=== PATIENT | male | born 1955 | race Caucasian/White ===

== ENCOUNTER 2017-09-05 11:05 | Inpatient (IN) | payer OTHER ==
[~2017-09-05] VITALS: Ht 185.4 cm; Wt 111.2 kg
[2017-09-05 13:27] LABS: ABSOLUTE BASOPHIL COUNT 0.1 /CUMM (0.0-0.2); ABSOLUTE EOSINOPHIL COUNT 0.1 /CUMM (0.0-0.7); ABSOLUTE MONOCYTE COUNT 0.4 /CUMM (0.10-0.60); BASOPHIL % 0.5 % (0.0-2.0); EOSINOPHIL % 1.1 % (0-5); GRANULOCYTE % 85.9 % (42.2-75.2); HEMATOCRIT 45.2 % (42-52); MEAN CORPUSCULAR HGB 27.6 PG (27.0-31.0); MEAN CORPUSCULAR VOLUME 86.1 FL (80.0-94.0); MEAN PLATELET VOLUME 12.5 FL (7.4-10.4); RBC DISTRIBUTION WIDTH 15.8 % (11.5-14.5); RED BLOOD CELL CT 5.25 /CUMM (4.70-6.10); WHITE BLOOD CELL COUNT 11.6 /CUMM (4.8-10.8)
[2017-09-05 13:49] LABS: PLATELET COUNT 90 /CUMM (130-400)
--- NOTE | 2017-09-05 14:07 | ED GENERAL ADULT ---
History of Present Illness General Chief Complaint: General Adult Stated Complaint: WEAKNESS Source: patient, family Exam Limitations: no limitations Vital Signs & Intake/Output Vital Signs & Intake/Output Vital Signs Date Time Temp Pulse Resp B/P B/P Pulse O2 O2 Flow FiO2 Mean Ox Delivery Rate 09/05 1837 97.8 84 18 148/92 100 Room Air 09/05 1553 98.6 88 18 122/85 99 Room Air 09/05 1403 97.9 88 18 117/76 96 Room Air 09/05 1304 98.2 86 18 95 Room Air 09/05 1118 98.6 97 20 119/87 96 Room Air Allergies Coded Allergies: NO KNOWN ALLERGIES (NO) (08/17/10) Reconcile Medications Amlodipine Besylate 2.5 MG TABLET 2.5 MG PO DAILY HTN (Reported) Aspirin (Ecotrin*) 81 MG TABLET.DR 1 TAB PO DAILY CARDIAC (Reported) Calcitriol 0.25 MCG CAPSULE 1 TAB PO SI SUPPLEMENT (Reported) Ferrous Sulfate 325 MG (65 MG IRON) TABLET 1 TAB PO DAILY SUPPLEMENT ( Reported) Folic Acid 1 MG TABLET 1 MG PO DAILY SUPPLEMENT (Reported) Furosemide (Lasix) 40 MG TABLET 1 TAB PO DAILY FLUID RETENTION (Reported) Levetiracetam (Keppra) 500 MG TABLET 500 MG PO DAILY SEIZURE (Reported) Lisinopril 10 MG TABLET 1 TAB PO DAILY HTN (Reported) Triage Note: PT C/O FEELING WEAK, LOSS OF APPETITE, WEIGHT LOSS X 2 WEEKS. PT STATES SOB WHEN HE WALKS BUT THAT IS NORMAL FOR HIM. NEUROS INTACT IN TRIAGE Triage Nurses Notes Reviewed? 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 The patient has never had anorexia in the past and is not sure what the etiology of his current lack of appetite is. He has been taking in plenty of fluids subjectively, but has no desire to eat food. He has been force feeding himself as much as possible, but has become progressively weak and has lost significant amounts of weight. They attempted to get an appointment with his tremor care physician but were unsuccessful, and then they attempted to call his chief physical therapist for an appointment but he was in the civil laboratory technician and they were instructed to come to the ED for a more acute and emergent evaluation. Upon my initial encounter the patient is fatigued but otherwise nontoxic and no acute distress. Past History Travel History Traveled to [place] past 21 day No Medical History Any Pertinent Medical History? see below for history Neurological: CVA Cardiovascular: hypertension Pneumonia Vaccine: 10/20/10 Surgical History Surgical History: bovine heart valve replacement Psychosocial History Who do you live with Spouse Services at Home None What is your primary language Vietnamese Tobacco Use: Quit >30 days ago ETOH Use: occasional use Illicit Drug Use: denies illicit drug use Family History Hx Contributory? Yes Review of Systems Review of Systems Constitutional: Reports: see HPI, malaise, weakness, unexplained weight loss. Denies: chills, diaphoresis, fever. EENTM: Reports: no symptoms. Respiratory: Reports: no symptoms. Cardiovascular: Reports: no symptoms. GI: Reports: no symptoms. Genitourinary: Reports: no symptoms. Musculoskeletal: Reports: no symptoms. Skin: Reports: no symptoms. Neurological/Psychological: Reports: no symptoms. Hematologic/Endocrine: Reports: no symptoms. Immunologic/Allergic: Reports: no symptoms. All Other Systems: Reviewed and Negative Physical Exam Physical Exam General Appearance: no apparent distress, alert, awake, comfortable, lethargic Comments: HEENT: Inspection of the head reveals a normocephalic cranium with no signs of trauma. Ophtho: Extraocular muscles are intact and pupils are equal and reactive to light bilaterally with no afferent pupillary defect. The sclera are noninjected , and there is no obvious discharge. Neck: The trachea is midline, there is no obvious asymmetry or mass over the thyroid, and there is no midline cervical spine tenderness Respiratory: The lungs are clear and equal to auscultation bilaterally without wheezes, rales, or rhonchi. The patient exhibits no signs of labored breathing. Cardiac: Regular rhythm and non-tachycardic without appreciable murmurs on auscultation. No obvious JVD. GI: Examination of the abdomen reveals no significant focal tenderness in any of the four quadrants. There is negative Beauchamp's sign, negative McBurney's point tenderness, negative Metaline sign, negative Love-Wheat sign, and no signs of peritonitis whatsoever on percussion or deep palpation. The skin is intact with no sign of trauma or infection. : Deferred Neuro: The patient is oriented to person, place, time, and situation, with no obvious focal motor deficits. There were no sensory deficits, and the patient exhibit purposeful movement of all 4 extremities. Cranial nerves II through XII are intact, and gait is normal. Behavioral: Subjectively fatigued, but otherwise calm and cooperative Dermatologic: Dermatologic examination reveals no diffuse rashes or exanthems, no petechiae, no ecchymoses, and no other signs of erythema or infection. Core Measures ACS in differential dx? Yes CVA/TIA Diagnosis: No Sepsis Present: No Sepsis Focused Exam Completed? No Progress Differential Diagnoses I considered the following diagnoses in my evaluation of the patient: Renal failure, electrolyte abnormality, urinary tract infection, pneumonia, sepsis, acute coronary syndrome, [place], multiple other possibilities Plan of Care: Orders Procedure Date/time Status Heart Healthy Diet 09/06 B Active Pathway - chart 09/05 1921 Active House Staff 09/05 1921 Active Patient Data 09/05 192 Active Code Status 09/05 192 Active Patient Data 09/05 1719 Active ED Holding Orders 09/05 171 Active Admit to inpatient 09/05 171 Active FingerStick- Glucose 09/05 171 Active Code Status 09/05 1713 Complete Intake & Output 09/05 1427 Active TROPONIN LEVEL 09/05 1205 Complete COMPREHENSIVE METABOLIC PANEL 09/05 1205 Complete CBC WITHOUT DIFFERENTIAL 09/05 1205 Complete EKG 09/05 1120 Active VTE Mechanical Prophylaxis 09/05 UNK Active Current Medications Sig/Nelson Start time Last Medication Dose Stop Time Status Admin Enoxaparin Sodium 40 MG DAILY 09/05 1921 UNVr (Lovenox) Laboratory Tests 09/05/17 1302: Anion Gap 14, Estimated GFR 44 L, BUN/Creatinine Ratio 16.9, Glucose 609 *H, Calcium 9.7, Total Bilirubin 0.9, AST 9 L, ALT 20 L, Alkaline Phosphatase 74, Troponin I < 0.01, Total Protein 6.4, Albumin 3.7, Globulin 2.7, Albumin/ Globulin Ratio 1.4, CBC w Diff NO MAN DIFF REQ, RBC 5.25, MCV 86.1, MCH 27.6, MCHC 32.0 L, RDW 15.8 H, MPV 12.5 H, Gran % 85.9 H, Lymphocytes % 8.9 L, Monocytes % 3.6, Eosinophils % 1.1, Basophils % 0.5, Absolute Granulocytes 10.0 H, Absolute Lymphocytes 1.0 L, Absolute Monocytes 0.4, Absolute Eosinophils 0.1 , Absolute Basophils 0.1 Initial ED EKG: none Comments: Patient presented with fatigue, malaise, polyuria, polydipsia, and loss of appetite. Laboratory studies were largely normal except for a significant abnormal glucose of 609. This represents a likely diagnosis of new onset diabetes. I discussed the case with endocrinology (Benito Rodriguez MD) who recommended hospitalization for urgent workup given his comorbidities. Hospitalized in hemodynamically stable condition. Departure Departure Time of Disposition: 1647 Disposition: STILL A PATIENT Condition: Fair Clinical Impression Primary Impression: Diabetes Qualifiers: Diabetes mellitus type: type 2 Diabetes mellitus skilled nursing insulin use: without watermaster use Diabetes mellitus complication status: with hyperglycemia Qualified Code: E11.65 - Type 2 diabetes mellitus with hyperglycemia Referrals: Maximo Egan MD (PCP/Family) Departure Forms: Customer Survey General Discharge Information Admission Note Spoke With: Enriqueta Arzate MD Documentation of Exam: Documentation of any treatments & extenuating circumstances including Concerns Regarding Discharge (functional status, medication knowledge or non-compliance, living conditions, etc.) that warrant an admission rather than observation: Patient presented today for fatigue, polyuria, polydipsia. Laboratory studies diagnosed him with likely new onset diabetes type 2. After discussion with endocrinology, it does not seem that discharge home with outpatient follow-up would be appropriate given his comorbidities and the risk for decompensation. For this reason, the patient will be admitted for further workup. Critical Care Note Critical Care Note Critical Care Time: non-applicable ED Attending Observation Initial Observation Note: I have seen and personally examined SUZI GARCIAN on 09/05/17 at 1929. I agree with the current emergency department documentation. The disposition (admission or discharge) is uncertain at this time, he needs a period of observation for the following reason(s): The ED Nurse caring for this patient has been personally informed as to what the patient is being observed for.
[2017-09-05] MEDS ORDERED: AMLODIPINE BES2.5 M1 PO (14:45)
[2017-09-05] MEDS ORDERED: KEPPRA500 M1 PO (14:45)
[2017-09-05] MEDS ORDERED: FERROUS SULFAT325 M3 PO (14:46)
[2017-09-05] MEDS ORDERED: LASIX40 M1 PO (14:46)
[2017-09-05] MEDS ORDERED: FOLIC ACID1 M1 PO (14:46)
[2017-09-05] MEDS ORDERED: ASPIRIN EC81 M1 PO (14:47)
[2017-09-05] MEDS ORDERED: LISINOPRIL10 M1 PO (14:47)
[2017-09-05] MEDS ORDERED: CALCITRIOL0.25 MC1 PO (14:52)
--- NOTE | 2017-09-05 14:58 | RADIOLOGY REPORT ---
EXAMINATION: XR CHEST CLINICAL INFORMATION: Weakness. COMPARISON: Chest portable 06/14/2011. TECHNIQUE: 2 views of the chest were obtained. FINDINGS: There is moderate elevation of left hemidiaphragm unchanged to 06/14/2011 exam. The heart size is enlarged with normal pulmonary vascularity. The lungs are well-expanded and clear. There is minimal bilateral apical scarring. No gross bony abnormality seen. IMPRESSION: No acute cardiopulmonary process. Moderate elevated left hemidiaphragm is stable compared to 06/14/2011.
--- NOTE | 2017-09-05 17:21 | History & Physical ---
[facility] WEAVER,[facility] 1721: General Information and HPI MD Statement: I have seen and personally examined CHUCKIE GARCIA and documented this H&P. The patient is a 61 year old M who presented with a patient stated chief complaint of [new-onset diabetes]. Source of Information: patient, old records Exam Limitations: no limitations History of Present Illness: Patient is a 61-year-old male with past medical history of subarachnoid hemorrhage status post clipping in 2010, history of endocarditis status post aortic valve replacement 2010, peripheral vascular disease, hypertension, BPH, history of seizure presented with chief complaints of weight loss, weakness and loss of appetite since last 3 weeks. According to the patient he was relatively all right 3 weeks ago and then he felt that he is a little bit dizzy and he lost his appetite. He was saying that he started losing weight and he described it as a losing the codes. He is drinking a lot around 3 L per day and also having increased frequency of urination. At her baseline he uses cane since 2010 because of weak left leg he did have episode of slipping but never had fall or injure himself. He also complaining for shortness of breath while going up and down the stairs. Of note since last 2 or 3 days he is having severe sore throat and difficulty in the swallowing. Allergies -He was complaining of allergies with some antibiotic but is not aware of the name Surgical history- history of subarachnoid hemorrhage and clipping of aneurysm in 2010 Aortic valve repair with bovine valve 2010 Family history - father had aneurysm and CABG, emphysema Mother had stroke and aneurysm Personal history-he lives at [place], for the , walks with a cane, he quit smoking at the age of 44 and smoked since age of [age] around 1 pack per day. He drinks alcohol occasionally. 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 [place], follow-up every 1 year Pet House Sitter-Dr. Atkinson, follow-up every 6 months, had an echocardiogram 1 year ago Neurologist - Dr. Gonzalez Podiatry-Dr. Karimi, [place]. Allergies/Medications Allergies: Coded Allergies: NO KNOWN ALLERGIES (NO) (08/17/10) Home Med list Amlodipine Besylate 2.5 MG TABLET 2.5 MG PO DAILY HTN (Reported) Aspirin (Ecotrin*) 81 MG TABLET.DR 1 TAB PO DAILY CARDIAC (Reported) Calcitriol 0.25 MCG CAPSULE 1 TAB PO SI SUPPLEMENT (Reported) Ferrous Sulfate 325 MG (65 MG IRON) TABLET 1 TAB PO DAILY SUPPLEMENT ( Reported) Folic Acid 1 MG TABLET 1 MG PO DAILY SUPPLEMENT (Reported) Furosemide (Lasix) 40 MG TABLET 1 TAB PO DAILY FLUID RETENTION (Reported) Levetiracetam (Keppra) 500 MG TABLET 500 MG PO DAILY SEIZURE (Reported) Lisinopril 10 MG TABLET 1 TAB PO DAILY HTN (Reported) Past History Travel History Traveled to [place] past 21 day No Medical History Neurological: CVA Cardiovascular: hypertension Pneumonia Vaccine: 10/20/10 Surgical History Surgical History: bovine heart valve replacement Past Family/Social History Psychosocial History Services at Home: None ETOH Use: occasional use Illicit Drug Use: denies illicit drug use Review of Systems Review of Systems Constitutional: Reports: no symptoms, malaise, weakness, unexplained weight loss. Exam & Diagnostic Data Last 24 Hrs of Vital Signs/I&O Vital Signs Date Time Temp Pulse Resp B/P B/P Pulse O2 O2 Flow FiO2 Mean Ox Delivery Rate 09/05 1837 97.8 84 18 148/92 100 Room Air 09/05 1553 98.6 88 18 122/85 99 Room Air 09/05 1403 97.9 88 18 117/76 96 Room Air 09/05 1304 98.2 86 18 95 Room Air 09/05 1118 98.6 97 20 119/87 96 Room Air Intake & Output 09/05 1600 09/05 0800 09/05 0000 Intake Total Output Total Balance Patient 121.109 kg Weight Weight Reported by Patient Measurement Method Physical Exam General Appearance Alert, Oriented X3, Cooperative, No Acute Distress HEENT Atraumatic, PERRLA, EOMI, oral cavity - thrush, Neck Supple, No JVD, No thryomegaly Cardiovascular Normal S1, Normal S2 Lungs decreased air entry on bases left more than right Abdomen Soft, No Tenderness, umbilical hernia Neurological Normal Speech, Strength at 5/5 X4 Ext, Normal Tone, Sensation Intact, Cranial Nerves 3-12 NL Extremities bilateral lower extremeties chronic stasis changes, decreased posterior tibial but normal dorsalis pedis., there was dry scab on front of left lower tabor Last 24 Hrs of Labs/Harrison: Laboratory Tests 09/05/17 1302: Anion Gap 14, Estimated GFR 44 L, BUN/Creatinine Ratio 16.9, Glucose 609 *H, Calcium 9.7, Total Bilirubin 0.9, AST 9 L, ALT 20 L, Alkaline Phosphatase 74, Troponin I < 0.01, Total Protein 6.4, Albumin 3.7, Globulin 2.7, Albumin/ Globulin Ratio 1.4, CBC w Diff NO MAN DIFF REQ, RBC 5.25, MCV 86.1, MCH 27.6, MCHC 32.0 L, RDW 15.8 H, MPV 12.5 H, Gran % 85.9 H, Lymphocytes % 8.9 L, Monocytes % 3.6, Eosinophils % 1.1, Basophils % 0.5, Absolute Granulocytes 10.0 H, Absolute Lymphocytes 1.0 L, Absolute Monocytes 0.4, Absolute Eosinophils 0.1 , Absolute Basophils 0.1 Assessment/Plan Assessment: Patient is a 61-year-old male with past medical history of subarachnoid hemorrhage status post clipping in 2010, 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 ED course - Vital signs at the time of admission -temperature 98.6, pulse 97, respiratory 20 , blood pressure 119/87, SPO2 96% on room air. On physical examination -oral cavity -thrush, left lower leg weakness, bilateral lower extremity chronic skin changes due to stasis Blood workup showed -WBC 11.6, hemoglobin 14.5, hematocrit 45.6, MCV 86.1, platelet count 90,000, granulocyte 85.9, no band cells, sodium 133, potassium 4.6, chloride 95, carbon dioxide 23, anion gap 14, BUN 27, creatinine 1.6, GFR 44, glucose 309, calcium 9.7, total bilirubin 0.9, AST 9, ALT 20, alkaline phosphatase 74, troponin I less than 0.01, albumin 3.7. Chest x-ray - * No acute cardiopulmonary process. * Moderate elevated left hemidiaphragm is stable compared to 06/14/2011 New-onset diabetes mellitus * Admit the patient to general medicine floor * Start patient on IV fluids-normal saline 75 cc/h * Carbohydrate type II diet * Blood sugar monitoring 4 times daily/at bedtime * NovoLog according to the sliding scale * Follow-up endocrine consult * Follow HbA1c * Will check magnesium and phosphorus Acute kidney injury - * We will regularly monitor BUN/creatinine * We will hold furosemide and lisinopril * Strict intake output charting Pseudo-hyponatremia -corrected sodium is 141 * We will control the blood sugar level and regularly monitored the serum sodium level Thrombocytopenia - New onset thrombocytopenia we do not know exactly the cause but may be infection as he was also complaining of sore throat. He denies for any active bleeding, black stool. * We will regularly monitor the serum platelet count. Oral thrush -candidal esophagitis? He was complaining of difficulty in swelling and on examination there was whitish patch on the back of the throat. * Advised for nystatin swish and swallow for now * If he continued to complaining of pain while swallowing we will plan for EGD. * We will check for HIV. Chronic medical condition-aortic valve replacement, history of seizure disorder, peripheral vascular disease - * Will continue aspirin and levetiracetam. We will hold Lasix and lisinopril. DVT prophylaxis -ALPS/heparin CODE STATUS-full code Diet-carbohydrate type II diet As Ranked By This Provider Problem List: 1. Diabetes Qualifiers Diabetes mellitus type: type 2 Diabetes mellitus director long term care insulin use: without correction use Diabetes mellitus complication status: with hyperglycemia Qualified Code: E11.65 - Type 2 diabetes mellitus with hyperglycemia 2. Syncope 3. SUB ARACHNOID HEMORRHAGE 4. SEIZURE DISORDER 5. H/O HYPERTENSION 6. Endocarditis 7. BPH 8. Aortic Valve Replacement Core Measures/Misc (12/24) Acute Coronary Syndrome ACS Diagnosis: No Congestive Heart Failure Congestive Heart Failure Diagnosis No Cerebrovascular Accident CVA/TIA Diagnosis: No VTE (View Protocol) VTE Risk Factors Age>40 No Mechanical VTE Prophylaxis d/t N/A MechProphylax Ordered No VTE Pharm Prophylaxis d/t Platelets below ref range (low platelet count) Sepsis (View protocol) Sepsis Present: No If YES complete Sepsis Event Note If YES complete Sepsis Event Note Enriqueta Arzate MD 09/06/17 1048: Core Measures/Misc (12/24) Sepsis (View protocol) If YES complete Sepsis Event Note If YES complete Sepsis Event Note Attending MD Review Statement Attending Statement Attending MD Statement: examined this patient, discuss w/resident/PA/SATURATOR TENDER, agreed w/resident/PA/SATURATOR TENDER, reviewed EMR data (avail) Attending Assessment/Plan: 61M PMH subarachnoid hemorrhage status post clipping in 2010, 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 Labs otherwise unremarkable. Patient has oral thrush without odynophagia. Plan - Admit to general medicine - Sliding scale insulin, add long acting tomorrow - IV hydration - Nystatin S/S - HbA1c - Continue home medications - DVT PPx
--- NOTE | 2017-09-05 18:46 | Cons- Endocrinology ---
General Information and HPI Consulting Request Date of Consult: 09/05/17 Requested By: medical team Reason for Consult: Uncontrolled diabetes new-onset Source of Information: patient, family, old records Exam Limitations: no limitations History of Present Illness: This 55-year-old male has a complicated past history. He has had a history of hypertension with a subarachnoid hemorrhage in the past due to a brain aneurysm. He has a seizure disorder. He also had an episode of enterococcal endocarditis and had to undergo an aortic valve replacement with a pig valve at [facility] in October 2010. The patient came to emergency room because he felt weak. He did notice increased thirst and urination. He states he has been losing weight. When his lab work was done it showed a blood sugar 609 BUN 27 creatinine 1.6 sodium 133 potassium 4.6 chloride 95 CO2 23 anion gap normal at 14. The patient has a history of chronic renal failure with a creatinine in the range it is tonight at 1.6. He states he is followed by a kidney doctor Dr. Chua. Allergies/Medications Allergies: Coded Allergies: NO KNOWN ALLERGIES (NO) (08/17/10) Home Med List: Amlodipine Besylate 2.5 MG TABLET 2.5 MG PO DAILY HTN (Reported) Aspirin (Ecotrin*) 81 MG TABLET.DR 1 TAB PO DAILY CARDIAC (Reported) Atorvastatin Calcium 40 MG TABLET 1 TAB PO DAILY HLD Calcitriol 0.25 MCG CAPSULE 1 TAB PO SI SUPPLEMENT (Reported) Ferrous Sulfate 325 MG (65 MG IRON) TABLET 1 TAB PO DAILY SUPPLEMENT ( Reported) Folic Acid 1 MG TABLET 1 MG PO DAILY SUPPLEMENT (Reported) Furosemide (Lasix) 40 MG TABLET 1 TAB PO DAILY FLUID RETENTION (Reported) Insulin Glargine,Hum.rec.anlog (Lantus Solostar) 100 UNIT/ML (3 ML) INSULN.PEN 10 UNITS SC BID DM Insulin Lispro (Humalog) 100 UNIT/ML VIAL 0 SC TIDAC DM Levetiracetam (Keppra) 500 MG TABLET 500 MG PO DAILY SEIZURE (Reported) Lisinopril 10 MG TABLET 1 TAB PO DAILY HTN (Reported) Nystatin 100,000 UNIT/ML ORAL.SUSP 5 ML PO 4 TIMES/DAY Oral thrush . Pen Needle, Diabetic (Bd Ultra-Fine Pen Needle) 31 GAUGE X 5/16" DIS.NEEDLE 1 UNIT SC 5 TIMES CHASE DM Current Medications: Current Medications Sig/Nelson Start time Last Medication Dose Route Stop Time Status Admin Insulin Human Regular 10 UNITS ONCE ONE 09/05 1645 DC 09/05 IV 09/05 1646 1650 Sodium Chloride 1,000 ML BOLUS ONE 09/05 1730 DC 09/05 IV 09/05 1829 1731 Review of Systems Review of Systems Constitutional: Denies: chills, fever. Cardiovascular: Denies: chest pain, palpitations. Respiratory: Denies: short of breath. GI: Denies: nausea, vomiting. Skin: Reports: no symptoms. Past History Travel History Traveled to [facility] past 21 day No Medical History Neurological: CVA Cardiovascular: hypertension Surgical History Surgical History: bovine heart valve replacement Psychosocial History Services at Home: None ETOH Use: occasional use Illicit Drug Use: denies illicit drug use Exam & Diagnostic Data Last 24 Hrs of Vital Signs/I&O Vital Signs Date Time Temp Pulse Resp B/P B/P Pulse O2 O2 Flow FiO2 Mean Ox Delivery Rate 09/05 1837 97.8 84 18 148/92 100 Room Air 09/05 1553 98.6 88 18 122/85 99 Room Air 09/05 1403 97.9 88 18 117/76 96 Room Air 09/05 1304 98.2 86 18 95 Room Air 09/05 1118 98.6 97 20 119/87 96 Room Air Intake & Output 09/05 1600 09/05 0800 09/05 0000 Intake Total Output Total Balance Patient 267 lb Weight Weight Reported by Patient Measurement Method Vital Signs Date Time Temp Pulse Resp B/P B/P Pulse O2 O2 Flow FiO2 Mean Ox Delivery Rate 09/05 1837 97.8 84 18 148/92 100 Room Air 09/05 1553 98.6 88 18 122/85 99 Room Air 09/05 1403 97.9 88 18 117/76 96 Room Air 09/05 1304 98.2 86 18 95 Room Air 09/05 1118 98.6 97 20 119/87 96 Room Air Intake & Output 09/05 1600 09/05 0800 09/05 0000 Intake Total Output Total Balance Patient 267 lb Weight Weight Reported by Patient Measurement Method Physical Exam General Appearance: alert, awake, comfortable Head: normal appearance Eyes: Bilateral: normal appearance. Neck: normal inspection Respiratory: decreased breath sounds Cardiovascular: regular rate/rhythm Gastrointestinal: normal bowel sounds Extremities: normal inspection Labs/Harrison Results: Laboratory Tests 09/05 1302 Chemistry Sodium (137 - 145 mmol/L) 133 L Potassium (3.5 - 5.1 mmol/L) 4.6 Chloride (98 - 107 mmol/L) 95 L Carbon Dioxide (22 - 30 mmol/L) 23 Anion Gap (5 - 16) 14 BUN (9 - 20 mg/dL) 27 H Creatinine (0.7 - 1.2 mg/dL) 1.6 H Estimated GFR (>60 ml/min) 44 L BUN/Creatinine Ratio (7 - 25 %) 16.9 Glucose (65 - 99 mg/dL) 609 *H Calcium (8.4 - 10.2 mg/dL) 9.7 Total Bilirubin (0.2 - 1.3 mg/dL) 0.9 AST (17 - 59 U/L) 9 L ALT (21 - 72 U/L) 20 L Alkaline Phosphatase (< 127 U/L) 74 Troponin I (<0.11 ng/ml) < 0.01 Total Protein (6.3 - 8.2 g/dL) 6.4 Albumin (3.5 - 5.0 g/dL) 3.7 Globulin (1.9 - 4.2 gm/dL) 2.7 Albumin/Globulin Ratio (1.1 - 2.2 %) 1.4 Hematology CBC w Diff NO MAN DIFF REQ WBC (4.8 - 10.8 /CUMM) 11.6 H RBC (4.70 - 6.10 /CUMM) 5.25 Hgb (14.0 - 18.0 G/DL) 14.5 Hct (42 - 52 %) 45.2 MCV (80.0 - 94.0 FL) 86.1 MCH (27.0 - 31.0 PG) 27.6 MCHC (33.0 - 37.0 G/DL) 32.0 L RDW (11.5 - 14.5 %) 15.8 H Plt Count (130 - 400 /CUMM) 90 L MPV (7.4 - 10.4 FL) 12.5 H Gran % (42.2 - 75.2 %) 85.9 H Lymphocytes % (20.5 - 51.1 %) 8.9 L Monocytes % (1.7 - 9.3 %) 3.6 Eosinophils % (0 - 5 %) 1.1 Basophils % (0.0 - 2.0 %) 0.5 Absolute Granulocytes (1.4 - 6.5 /CUMM) 10.0 H Absolute Lymphocytes (1.2 - 3.4 /CUMM) 1.0 L Absolute Monocytes (0.10 - 0.60 /CUMM) 0.4 Absolute Eosinophils (0.0 - 0.7 /CUMM) 0.1 Absolute Basophils (0.0 - 0.2 /CUMM) 0.1 Assessment/Plan Assessment/Plan This patient presents with uncontrolled diabetes of recent onset. He has lost significant weight over the past few months and has noted increasing weakness. He also has increased thirst. So far the patient has received 10 units of regular insulin IV at 4:45 PM and 1 L of normal saline. We should recheck a fingerstick blood sugar now. If his blood sugar is above 300 we can give him 4 units of NovoLog accompanied by a snack or small meal tonight. His labs show his BUN and creatinine to be in a range that has been normal for him over the past few years. He does not appear to be very dehydrated and we need to be careful with his fluids in view of his renal failure and underlying cardiac disease. The patient has chronic renal failure at least stage III so that he is not a good candidate for metformin and many of the drugs that we would like to use for diabetes. Therefore we will need to place him on an insulin regimen We should order the patient a diabetic diet. We can place him on IV fluids with normal saline at 75 cc/h. Suggest begin Levemir 10 units once a day at bedtime. We should also place him on sliding scale NovoLog before meals. Sliding scale NovoLog before meals should be 80-150 give 3 units NovoLog, 151-200 give 4 units NovoLog, 201-250 give 5 units NovoLog, 251-300 give 6 units NovoLog, 301-350 give 7 units NovoLog, 3 5104 100 give 8 units NovoLog. A separate bedtime sliding scale NovoLog should be written. Sliding scale NovoLog at bedtime should be less than 250 give no insulin, 251-300 give 2 units NovoLog, 301-350 give 3 units NovoLog, 351-400 give 4 units NovoLog. The patient needs to be educated on a diabetic diet and needs to be taught how to take insulin and also how to do fingerstick blood sugars while in the hospital. Consult Acknowledgment - Thank you for your consult request.
[2017-09-05 23:52] VITALS: BP 114/82
--- NOTE | 2017-09-06 07:23 | PN- Housestaff ---
Jami Chávez 09/06/17 0723: Subjective Follow-up For: Odynophagia New onset DM Generalized weakness YANG - resolved Thrombocytopenia Subjective: FSG 379, 351. Patient offers no complaints. Denies nausea, vomiting, blurry vision, urinary or bowel symptoms Review of Systems Constitutional: Reports: see HPI. Objective Last 24 Hrs of Vital Signs/I&O Vital Signs Date Time Temp Pulse Resp B/P B/P Pulse O2 O2 Flow FiO2 Mean Ox Delivery Rate 09/05 2352 98.2 88 18 114/82 94 09/05 2205 98.4 86 18 145/87 100 Room Air 09/05 1837 97.8 84 18 148/92 100 Room Air 09/05 1553 98.6 88 18 122/85 99 Room Air 09/05 1403 97.9 88 18 117/76 96 Room Air Intake & Output 09/06 1600 09/06 0800 09/06 0000 Intake Total 840 250 Output Total Balance 840 250 Intake, IV 600 10 Intake, Oral 240 240 Number 1 Bowel Movements Patient 245 lb 245 lb 245 lb Weight Weight Bed scale Bed scale Measurement Method Physical Exam General Appearance: Alert, Oriented X3, Cooperative, No Acute Distress, Obese HEENT: Atraumatic, PERRLA, EOMI, Mucous Membr. moist/pink Cardiovascular: Regular Rate, Normal S1, Normal S2 Lungs: Clear to Auscultation, Normal Air Movement Abdomen: Normal Bowel Sounds, Soft, No Tenderness Extremities: Trace edema Current Medications: Current Medications Sig/Nelson Start time Last Medication Dose Route Stop Time Status Admin Amlodipine Besylate 2.5 MG DAILY 09/06 899 AC 09/06 PO 0847 Aspirin Buffered 81 MG DAILY 09/06 899 AC 09/06 PO 0847 Calcitriol 0.25 MCG DAILY 09/06 899 AC 09/06 PO 0847 Enoxaparin Sodium 40 MG DAILY 09/05 192 DC SD Ferrous Sulfate 325 MG DAILY 09/06 899 AC 09/06 PO 0847 Folic Acid 1 MG DAILY 09/06 899 AC 09/06 PO 0847 Insulin Aspart 0 TIDAC 09/07 799 AC 09/06 SC 0845 Insulin Aspart 0 AT BEDTIME 09/05 2100 AC 09/05 SC 2245 Insulin Detemir 8 UNITS BID 09/06 899 AC 09/06 SC 0846 Insulin Detemir 10 UNITS DAILY 09/05 195 DC 09/05 SC 2244 Insulin Human Regular 10 UNITS ONCE ONE 09/05 1645 DC 09/05 IV 09/05 1646 1650 Levetiracetam 500 MG DAILY 09/06 0900 AC 09/06 PO 0847 Nystatin 5 ML 4 TIMES/DAY 09/05 211 AC 09/06 PO 0848 Sodium Chloride 1,000 ML Q13H 09/05 2000 AC 09/05 IV 2245 Sodium Chloride 1,000 ML BOLUS ONE 09/05 1730 DC 09/05 IV 09/05 1829 1731 Last 24 Hrs of Lab/Harrison Results Last 24 Hrs of Labs/Mics: Laboratory Tests 09/06/17 0705: Anion Gap 12, Estimated GFR > 60, BUN/Creatinine Ratio 16.4, CBC w Diff Pending, WBC Pending, RBC Pending, Hgb Pending, Hct Pending, MCV Pending, MCH Pending, MCHC Pending, RDW Pending, Plt Count Pending, MPV Pending, HIV 1&2 Ab Western Blot Pending 09/05/17 1302: Anion Gap 14, Estimated GFR 44 L, BUN/Creatinine Ratio 16.9, Glucose 609 *H, Hemoglobin A1c Pending, Calcium 9.7, Phosphorus 4.4, Magnesium 2.0, Total Bilirubin 0.9, AST 9 L, ALT 20 L, Alkaline Phosphatase 74, Troponin I < 0.01, Total Protein 6.4, Albumin 3.7, Globulin 2.7, Albumin/Globulin Ratio 1.4, CBC w Diff NO MAN DIFF REQ, RBC 5.25, MCV 86.1, MCH 27.6, MCHC 32.0 L, RDW 15.8 H, MPV 12.5 H, Gran % 85.9 H, Lymphocytes % 8.9 L, Monocytes % 3.6, Eosinophils % 1.1, Basophils % 0.5, Absolute Granulocytes 10.0 H, Absolute Lymphocytes 1.0 L, Absolute Monocytes 0.4, Absolute Eosinophils 0.1, Absolute Basophils 0.1 Assessment/Plan Assessment: Mr. Underwood is a 61-year-old male with past medical history of subarachnoid hemorrhage status post clipping in 2010, history of endocarditis status post aortic valve replacement 2010, peripheral vascular disease, hypertension, BPH, history of seizure presented with chief complaints of weight loss, weakness and loss of appetite since last 3 weeks. Problem list: #New onset DM #Generalized weakness #YANG - resolved #Thrombocytopenia #Odynophagia Plan: Monitor PLT 136>>90 HIV ab pending Continue Insulin Continue NS IVF @ 75 cc/hr Appreciate Endo recommendations Continue Keppra, ASA, Amlodipine, nystatin, calcitriol, ferrous sulfate, folic acid DVT prophylaxis -ALPS/heparin CODE STATUS-full code Diet-carbohydrate type II diet Problem List: 1. Diabetes Pain Ratin Pain Location: NA Pain Goal: Remain pain free Pain Plan: NA Tomorrow's Labs & Rationales: Elaine Luis MD 09/06/17 1118: Attending MD Review Statement Attending Statement Attending MD Statement: examined this patient, discuss w/resident/PA/PAYROLL AUDITOR, agreed w/resident/PA/PAYROLL AUDITOR, discussed with family, reviewed EMR data (avail), discussed with nursing, discussed with case mgmt, reviewed images, amended to note Attending Assessment/Plan: Patient seen and examined, denies any complaints. Blood sugars are better now. Patient is admitted with new onset diabetes and has been seen by endocrinology. Patient has been started on insulin. Vital Signs Date Time Temp Pulse Resp B/P B/P Pulse O2 O2 Flow FiO2 Mean Ox Delivery Rate 09/05 2352 98.2 88 18 114/82 94 09/05 2205 98.4 86 18 145/87 100 Room Air 09/05 1837 97.8 84 18 148/92 100 Room Air 09/05 1553 98.6 88 18 122/85 99 Room Air 09/05 1403 97.9 88 18 117/76 96 Room Air 09/05 1304 98.2 86 18 95 Room Air on exam: aox3, nad. cv; s1,s2, rrr resp; clear abd; soft, nt, bs+ ext; no edema Laboratory Tests 09/06 09/05 0705 1302 Chemistry Sodium (137 - 145 mmol/L) 138 133 L Potassium (3.5 - 5.1 mmol/L) 3.4 L 4.6 Chloride (98 - 107 mmol/L) 104 95 L Carbon Dioxide (22 - 30 mmol/L) 23 23 Anion Gap (5 - 16) 12 14 BUN (9 - 20 mg/dL) 18 27 H Creatinine (0.7 - 1.2 mg/dL) 1.1 1.6 H Estimated GFR (>60 ml/min) > 60 44 L BUN/Creatinine Ratio (7 - 25 %) 16.4 16.9 Glucose (65 - 99 mg/dL) 609 *H Hemoglobin A1c (4.2 - 5.8 %) 19.0 H Calcium (8.4 - 10.2 mg/dL) 9.7 Phosphorus (2.5 - 4.5 mg/dL) 4.4 Magnesium (1.6 - 2.3 mg/dL) 2.0 Total Bilirubin (0.2 - 1.3 mg/dL) 0.9 AST (17 - 59 U/L) 9 L ALT (21 - 72 U/L) 20 L Alkaline Phosphatase (< 127 U/L) 74 Troponin I (<0.11 ng/ml) < 0.01 Total Protein (6.3 - 8.2 g/dL) 6.4 Albumin (3.5 - 5.0 g/dL) 3.7 Globulin (1.9 - 4.2 gm/dL) 2.7 Albumin/Globulin Ratio (1.1 - 2.2 %) 1.4 Hematology CBC w Diff NO MAN DIFF REQ NO MAN DIFF REQ WBC (4.8 - 10.8 /CUMM) 6.9 11.6 H RBC (4.70 - 6.10 /CUMM) 4.68 L 5.25 Hgb (14.0 - 18.0 G/DL) 12.8 L 14.5 Hct (42 - 52 %) 40.0 L 45.2 MCV (80.0 - 94.0 FL) 85.4 86.1 MCH (27.0 - 31.0 PG) 27.3 27.6 MCHC (33.0 - 37.0 G/DL) 32.0 L 32.0 L RDW (11.5 - 14.5 %) 15.5 H 15.8 H Plt Count (130 - 400 /CUMM) 63 L 90 L MPV (7.4 - 10.4 FL) 10.7 H 12.5 H Gran % (42.2 - 75.2 %) 76.1 H 85.9 H Lymphocytes % (20.5 - 51.1 %) 15.9 L 8.9 L Monocytes % (1.7 - 9.3 %) 5.5 3.6 Eosinophils % (0 - 5 %) 2.3 1.1 Basophils % (0.0 - 2.0 %) 0.2 0.5 Absolute Granulocytes (1.4 - 6.5 /CUMM) 5.2 10.0 H Absolute Lymphocytes (1.2 - 3.4 /CUMM) 1.1 L 1.0 L Absolute Monocytes (0.10 - 0.60 /CUMM) 0.4 0.4 Absolute Eosinophils (0.0 - 0.7 /CUMM) 0.2 0.1 Absolute Basophils (0.0 - 0.2 /CUMM) 0 0.1 Serology HIV 1&2 Ab Western Blot (NONREACTIVE) NONREACTIVE A/P: 61 y/o M with pmh sig for subarachnoid hemorrhage status post clipping in 2010, history of endocarditis status post aortic valve replacement 2010, peripheral vascular disease, hypertension, BPH, history of seizure admitted with generalized weakness, polyuria, polydipsia and found to have new onset diabetes with significant hyperglycemia on admission. Patient seen by endocrinology. Has been started on insulin. Blood sugars are now running better. Patient will need nutrition consult. He will need insulin teaching as well as diabetic teaching. Patient also has oral thrush and I agree with nystatin swish and swallow. Also noted thrombocytopenia. It is getting worse today. Agree with checking HIV. Apparently there is some report for recent viral/cold-like symptoms. Please clarify with the patient if there is any chances of tick bite and if we need to rule out tick born illness as a causing thrombocytopenia. Will consider Hem eval if this does not improve. Insulin management per endocrinology. Continue the rest of the management. Will stop IVFs now that cr is back to baseline. DVT Px; ALPS.
--- NOTE | 2017-09-06 07:29 | PN- Diabetes ---
Assessment/Plan Diabetes Assessment: The patient feels okay this morning. He was started on insulin last night. He is following a diabetic diet. His sugar last night at 10:00 was 379. He received 10 units of Levemir and is on sliding scale NovoLog. Since blood sugar this morning by fingerstick before breakfast is 299. Plan: Suggest change Levemir to 8 units twice a day. Sliding scale NovoLog before meals should be 80-150 give 4 units NovoLog, 151- 200 give 5 units NovoLog, 201-250 give 6 units NovoLog, 251-300 give 7 units NovoLog, 301-350 give 8 units NovoLog, 351-400 give 9 units NovoLog. The separate sliding scale NovoLog at bedtime can stay as written. Patient needs to be taught to take his own insulin and also needs to learn how to check his own blood sugar. He also needs to be educated on a diabetic diet. Subjective Subjective: Feels okay Review of Systems Constitutional: Denies: chills, fever. Cardiovascular: Denies: chest pain. Respiratory: Denies: short of breath. Gastrointestinal: Denies: abdominal pain, nausea, vomiting. Skin: Reports: no symptoms. Objective Last 24 Hrs of Vital Signs/I&O Vital Signs Date Time Temp Pulse Resp B/P B/P Pulse O2 O2 Flow FiO2 Mean Ox Delivery Rate 09/05 2352 98.2 88 18 114/82 94 09/05 2205 98.4 86 18 145/87 100 Room Air 09/05 1837 97.8 84 18 148/92 100 Room Air 09/05 1553 98.6 88 18 122/85 99 Room Air 09/05 1403 97.9 88 18 117/76 96 Room Air 09/05 1304 98.2 86 18 95 Room Air 09/05 1118 98.6 97 20 119/87 96 Room Air Intake & Output 09/06 0800 09/06 0000 09/05 1600 Intake Total 840 250 Output Total Balance 840 250 Intake, IV 600 10 Intake, Oral 240 240 Number 1 Bowel Movements Patient 245 lb 245 lb 267 lb Weight Weight Bed scale Bed scale Reported by Patient Measurement Method Vital Signs Date Time Temp Pulse Resp B/P B/P Pulse O2 O2 Flow FiO2 Mean Ox Delivery Rate 09/05 2352 98.2 88 18 114/82 94 09/05 2205 98.4 86 18 145/87 100 Room Air 09/05 1837 97.8 84 18 148/92 100 Room Air 09/05 1553 98.6 88 18 122/85 99 Room Air 09/05 1403 97.9 88 18 117/76 96 Room Air 09/05 1304 98.2 86 18 95 Room Air 09/05 1118 98.6 97 20 119/87 96 Room Air Intake & Output 09/06 0800 09/06 0000 09/05 1600 Intake Total 840 250 Output Total Balance 840 250 Intake, IV 600 10 Intake, Oral 240 240 Number 1 Bowel Movements Patient 245 lb 245 lb 267 lb Weight Weight Bed scale Bed scale Reported by Patient Measurement Method Physical Exam General Appearance: alert, awake, comfortable Neck: normal inspection Respiratory: normal breath sounds Cardiovascular: regular rate/rhythm, systolic murmur Abdomen: normal bowel sounds Extremities: normal inspection Current Medications: Current Medications Sig/Nelson Start time Last Medication Dose Route Stop Time Status Admin Amlodipine Besylate 2.5 MG DAILY 09/06 899 AC PO Aspirin Buffered 81 MG DAILY 09/06 899 AC PO Calcitriol 0.25 MCG DAILY 09/06 899 AC PO Enoxaparin Sodium 40 MG DAILY 09/05 192 DC SC Ferrous Sulfate 325 MG DAILY 09/06 899 AC PO Folic Acid 1 MG DAILY 09/06 899 AC PO Insulin Aspart 0 TIDAC 09/06 08 AC SC Insulin Aspart 0 AT BEDTIME 09/05 2100 AC 09/05 SC 2245 Insulin Detemir 10 UNITS DAILY 09/05 195 AC 09/05 SC 2244 Insulin Human Regular 10 UNITS ONCE ONE 09/05 1645 DC 09/05 IV 09/05 1646 1650 Levetiracetam 500 MG DAILY 09/06 09 AC PO Nystatin 5 ML 4 TIMES/DAY 09/05 2116 AC 09/05 PO 2305 Sodium Chloride 1,000 ML Q13H 09/05 2000 AC 09/05 IV 2245 Sodium Chloride 1,000 ML BOLUS ONE 09/05 1730 DC 09/05 IV 09/05 1829 1731 Findings Pertinent Lab/Harrison Results: Laboratory Tests 09/06 09/05 0705 1302 Chemistry Sodium (137 - 145 mmol/L) Pending 133 L Potassium (3.5 - 5.1 mmol/L) Pending 4.6 Chloride (98 - 107 mmol/L) Pending 95 L Carbon Dioxide (22 - 30 mmol/L) Pending 23 Anion Gap (5 - 16) Pending 14 BUN (9 - 20 mg/dL) Pending 27 H Creatinine (0.7 - 1.2 mg/dL) Pending 1.6 H Estimated GFR (>60 ml/min) 44 L BUN/Creatinine Ratio (7 - 25 %) Pending 16.9 Glucose (65 - 99 mg/dL) 609 *H Hemoglobin A1c (4.2 - 5.8 %) Pending Calcium (8.4 - 10.2 mg/dL) 9.7 Phosphorus (2.5 - 4.5 mg/dL) 4.4 Magnesium (1.6 - 2.3 mg/dL) 2.0 Total Bilirubin (0.2 - 1.3 mg/dL) 0.9 AST (17 - 59 U/L) 9 L ALT (21 - 72 U/L) 20 L Alkaline Phosphatase (< 127 U/L) 74 Troponin I (<0.11 ng/ml) < 0.01 Total Protein (6.3 - 8.2 g/dL) 6.4 Albumin (3.5 - 5.0 g/dL) 3.7 Globulin (1.9 - 4.2 gm/dL) 2.7 Albumin/Globulin Ratio (1.1 - 2.2 %) 1.4 Hematology CBC w Diff Pending NO MAN DIFF REQ WBC (4.8 - 10.8 /CUMM) Pending 11.6 H RBC (4.70 - 6.10 /CUMM) Pending 5.25 Hgb (14.0 - 18.0 G/DL) Pending 14.5 Hct (42 - 52 %) Pending 45.2 MCV (80.0 - 94.0 FL) Pending 86.1 MCH (27.0 - 31.0 PG) Pending 27.6 MCHC (33.0 - 37.0 G/DL) Pending 32.0 L RDW (11.5 - 14.5 %) Pending 15.8 H Plt Count (130 - 400 /CUMM) Pending 90 L MPV (7.4 - 10.4 FL) Pending 12.5 H Gran % (42.2 - 75.2 %) 85.9 H Lymphocytes % (20.5 - 51.1 %) 8.9 L Monocytes % (1.7 - 9.3 %) 3.6 Eosinophils % (0 - 5 %) 1.1 Basophils % (0.0 - 2.0 %) 0.5 Absolute Granulocytes (1.4 - 6.5 /CUMM) 10.0 H Absolute Lymphocytes (1.2 - 3.4 /CUMM) 1.0 L Absolute Monocytes (0.10 - 0.60 /CUMM) 0.4 Absolute Eosinophils (0.0 - 0.7 /CUMM) 0.1 Absolute Basophils (0.0 - 0.2 /CUMM) 0.1
[2017-09-06 08:53] LABS: ABSOLUTE BASOPHIL COUNT 0 /CUMM (0.0-0.2); ABSOLUTE EOSINOPHIL COUNT 0.2 /CUMM (0.0-0.7); ABSOLUTE GRANULOCYTE CT 5.2 /CUMM (1.4-6.5); ABSOLUTE LYMPH COUNT 1.1 /CUMM (1.2-3.4); ABSOLUTE MONOCYTE COUNT 0.4 /CUMM (0.10-0.60); BASOPHIL % 0.2 % (0.0-2.0); EOSINOPHIL % 2.3 % (0-5); GRANULOCYTE % 76.1 % (42.2-75.2); MEAN CORPUSCULAR HGB 27.3 PG (27.0-31.0); MEAN CORPUSCULAR VOLUME 85.4 FL (80.0-94.0); MEAN PLATELET VOLUME 10.7 FL (7.4-10.4); PLATELET COUNT 63 /CUMM (130-400); RBC DISTRIBUTION WIDTH 15.5 % (11.5-14.5); RED BLOOD CELL CT 4.68 /CUMM (4.70-6.10); WHITE BLOOD CELL COUNT 6.9 /CUMM (4.8-10.8)
[2017-09-06 14:02] VITALS: BP 134/77
[2017-09-06] MEDS ORDERED: NYSTATIN100000 UNI PO (15:25)
--- NOTE | 2017-09-06 15:27 | Patient Discharge Instructions ---
Discharge Instructions General Discharge Information You were seen/treated for: Follow up with the Endocriniologist-Dr. Rodriguez within 1 week of discharge Follow up with your PCP within 1-2 weeks of discharge Use your insulin as prescribed daily You had these procedures: none Special Instructions: patient may need follow up cholesterol level in 3months, and LFT in a week f/b in a month. Diet Recommended Diet: Diabetic Activity Full Activity/No Limits: Yes Acute Coronary Syndrome Inclusion Criteria At DC or during hospital stay patient has or had the following: ACS DIAGNOSIS No Discharge Core Measures Meds if any: Prescribed or Continued at Discharge Meds if any: NOT Prescribed or Continued at Discharge Congestive Heart Failure Inclusion Criteria At DC or during hospital stay patient has or had the following: CHF DIAGNOSIS No Discharge Core Measures Meds if any: Prescribed or Continued at Discharge Meds if any: NOT Prescribed or Continued at Discharge Cerebrovascular accident Inclusion Criteria At DC or during hospital stay patient has or had the following: CVA/TIA Diagnosis No Discharge Core Measures Meds if any: Prescribed or Continued at Discharge Meds if any: NOT Prescribed or Continued at Discharge Venous thromboembolism Inclusion Criteria VTE Diagnosis No VTE Type NONE VTE Confirmed by (Test) NONE Discharge Core Measures - Per Current guidelines, there needs to be overlap - treatment for the first 5 days of Warfarin therapy. - If discharged on Warfarin prior to 5 days of - overlap therapy, the patient will need to be - assessed for post discharge needs including - *Post discharge parental anticoagulation - *Warfarin and/or parental anticoagulation education - *Follow up date to check INR post discharge At least 5 days overlap therapy as Inpatient No Meds if any: Prescribed or Continued at Discharge Note: Overlap Therapy is Warfarin and Anticoagulant Meds if any: NOT Prescribed or Continued at Discharge
[2017-09-06 22:23] VITALS: BP 118/78
[2017-09-07 06:15] VITALS: BP 167/95
--- NOTE | 2017-09-07 07:40 | PN- Housestaff ---
Jami Chávez 09/07/17 0739: Subjective Follow-up For: Odynophagia New onset DM Generalized weakness YANG - resolved Thrombocytopenia Subjective: FSG 257, 244. Patient reports blurry vision, nausea, vomiting, abdominal pain, urinary frequency or polydipsia Review of Systems Constitutional: Reports: see HPI. Objective Last 24 Hrs of Vital Signs/I&O Vital Signs Date Time Temp Pulse Resp B/P B/P Pulse O2 O2 Flow FiO2 Mean Ox Delivery Rate 09/08 839 78 130/88 09/07 0840 78 130/88 09/07 0615 98.0 58 18 167/95 90 09/06 2223 98.5 81 20 118/78 94 Room Air 09/06 1402 97.8 70 20 134/77 94 Room Air Intake & Output 09/07 1600 09/07 0800 09/07 0000 Intake Total 120 Output Total 450 785 Balance -330 -785 Intake, Oral 120 Number 1 Bowel Movements Output, Urine 450 785 Physical Exam General Appearance: Alert, Oriented X3, Cooperative, No Acute Distress Cardiovascular: Regular Rate, Normal S1, Normal S2 Lungs: Clear to Auscultation, Normal Air Movement Abdomen: Normal Bowel Sounds, Soft, No Tenderness Extremities: No Edema Current Medications: Current Medications Sig/Nelson Start time Last Medication Dose Route Stop Time Status Admin Amlodipine Besylate 2.5 MG DAILY 09/06 899 AC 09/07 PO 0840 Aspirin Buffered 81 MG DAILY 09/06 899 AC 09/07 PO 0832 Atorvastatin Calcium 40 MG 1700 09/07 1700 CAN PO Atorvastatin Calcium 40 MG 1700 09/07 1700 AC PO Calcitriol 0.25 MCG DAILY 09/06 899 AC 09/07 PO 0832 Ferrous Sulfate 325 MG DAILY 09/06 899 AC 09/07 PO 0832 Folic Acid 1 MG DAILY 09/06 899 AC 09/07 PO 0832 Furosemide 40 MG DAILY 09/07 899 AC 09/07 PO 0832 Insulin Aspart 0 TIDAC 09/07 799 AC 09/07 SC 1245 Insulin Aspart 0 AT BEDTIME 09/05 2100 AC 09/06 SC 2224 Insulin Detemir 8 UNITS BID 09/06 899 AC 09/07 SC 0833 Levetiracetam 500 MG DAILY 09/06 899 AC 09/07 PO 0832 Lisinopril 10 MG DAILY 09/07 899 AC 09/07 PO 0840 Nystatin 5 ML 4 TIMES/DAY 09/05 211 09/07 PO 1327 Patient Medication 1 ED ONE ONE 09/06 1630 DC Teaching ED 09/06 1631 Last 24 Hrs of Lab/Harrison Results Last 24 Hrs of Labs/Mics: Laboratory Tests 09/07/17 1300: TSH Pending, Free T4 Pending, CBC w Diff Pending, WBC Pending, RBC Pending, Hgb Pending, Hct Pending, MCV Pending, MCH Pending, MCHC Pending, RDW Pending, Plt Count Pending, MPV Pending, Gran % Pending, Lymphocytes % Pending, Monocytes % Pending, Eosinophils % Pending, Basophils % Pending, Absolute Granulocytes Pending, Absolute Lymphocytes Pending, Absolute Monocytes Pending, Absolute Eosinophils Pending, Absolute Basophils Pending 09/07/17 1130: TSH Cancelled 09/07/17 0811: Anion Gap 8, Estimated GFR > 60, BUN/Creatinine Ratio 11.8, Triglycerides 256 H , Cholesterol 222 H, LDL Cholesterol, Calc 139 H, HDL Cholesterol 32 L, Cholesterol/HDL Ratio 7 H, TSH 1.760, Free T4 1.06 09/07/17 0600: Ref Lab Test Result Pending, Babesia microti IgG Ab Pending, Babesia microti IgM Ab Pending, Babesia Interpretation Pending Assessment/Plan Assessment: Mr. Underwood is a 61-year-old male with past medical history of subarachnoid hemorrhage status post clipping in 2010, history of endocarditis status post aortic valve replacement 2010, peripheral vascular disease, hypertension, BPH, history of seizure presented with chief complaints of weight loss, weakness and loss of appetite since last 3 weeks. Problem list: #New onset DM #Generalized weakness #YANG - resolved #Thrombocytopenia #Odynophagia Plan: Monitor PLT 136>>63 We will send tick borne titers Optimal ASCVD risk 6.7%, we will start him on atorvasstatin 40 mg HIV ab negative We will discuss with Endo regarding what insulin regimen to send patient home on Diabetic and nutrition teaching Appreciate Endo recommendations Continue Keppra, ASA, Amlodipine, nystatin, calcitriol, ferrous sulfate, folic acid We will refer him to hematology as an outpatient for thrombocytopenia. No acute bleeding DVT prophylaxis -ALPS/heparin CODE STATUS-full code Diet-carbohydrate type II diet Problem List: 1. Diabetes Pain Ratin Pain Location: NA Pain Goal: Remain pain free Pain Plan: NA Tomorrow's Labs & Rationales: CBC, BEP Elmer WEAVER,Elaine 09/07/17 1144: Attending MD Review Statement Attending Statement Attending MD Statement: examined this patient, discuss w/resident/PA/SAVE ALL OPERATOR, agreed w/resident/PA/SAVE ALL OPERATOR, discussed with family, reviewed EMR data (avail), discussed with nursing, discussed with case mgmt, reviewed images, amended to note Attending Assessment/Plan: Patient examined, denies any complaints. Blood sugars are still running more than 250 range. Patient currently on Levemir and sliding scale insulin per endocrinology. He is getting diabetic teaching as well as insulin teaching. Vital Signs Date Time Temp Pulse Resp B/P B/P Pulse O2 O2 Flow FiO2 Mean Ox Delivery Rate 09/07 0840 78 130/88 09/07 0840 78 130/88 09/07 0615 98.0 58 18 167/95 90 09/06 2223 98.5 81 20 118/78 94 Room Air 09/06 1402 97.8 70 20 134/77 94 Room Air on exam; aox3, nad. + oral thrush. cv; s1,s2, rrr resp; clear abd; soft, nt, bs+ ext; no edema Laboratory Tests 09/07/17 0811: Anion Gap 8, Estimated GFR > 60, BUN/Creatinine Ratio 11.8, Triglycerides 256 H , Cholesterol 222 H, LDL Cholesterol, Calc 139 H, HDL Cholesterol 32 L, Cholesterol/HDL Ratio 7 H, TSH Pending, Free T4 Pending 09/07/17 0600: Ref Lab Test Result Pending A/P: 61 y/o M with pmh sig for subarachnoid hemorrhage status post clipping in 2010, history of endocarditis status post aortic valve replacement 2010, peripheral vascular disease, hypertension, BPH, history of seizure admitted with generalized weakness, polyuria, polydipsia and found to have new onset diabetes with significant hyperglycemia on admission. Patient also had significant thrombocytopenia on yesterday's blood work. Patient currently on basal as well as sliding scale insulin. Will follow further endo recommendations for adjusting insulin as blood sugars are still running high. Noted abnormal lipid panel. Will add statin. Patient already on MARLENI inhibitor which can be resumed. Patient already on a baby aspirin. Patient getting diabetic and insulin-teaching and has been seen by professional healthcare representative. Please repeat CBC today to follow thrombocytopenia. If there is further drop in plts or drop in H&H then will call heme consult. DVt px; ALPS and ambulation.
--- NOTE | 2017-09-07 11:36 | Discharge Summary ---
Visit Information Visit Dates Admission Date: 09/05/17 Discharge Date: 09/08/17 Hospital Course Course Attending Physician: Elaine Payne MD Primary Care Physician: Maximo Egan MD Hospital Course: Mr. Underwood is a 61-year-old male with past medical history of subarachnoid hemorrhage status post clipping in 2010, history of endocarditis status post aortic valve replacement 2010, peripheral vascular disease, hypertension, BPH, history of seizure presented with chief complaints of weight loss, weakness and loss of appetite since last 3 weeks. He was admitted to the [facility] floor for further evaluation and management #New onset uncontrolled DM #Odynophagia #Generalized weakness #YANG #Thrombocytopenia On admission his labs were significant for a glucose of 609 and a hemoglobin a1c of 19. Endocrinology was consulted. He was started on an insulin regimen. His creatinine was 1.6 on admission which was near his baseline. It eventually resolved but subsequently jose to 1.3. He was given adequate IVF. His platelets were low and so we were monitored it. It initially dropped to 63 but subsequently increased to 84 (90 on admission). It was unclear the etiology of his thrombocytopenia. We checked his serology for HIV and Lyme which were negative. His Babesia and Ehrlichia were sent out and he was instructed to follow up for his results. We continued his home medications. He complained of odynophagia and he was given nystatin which seemed to subside his symptoms. We suspected it was lu esophagitis given his immunodeficient state. Prior to discharge he received diabetis and nutrition teaching. He was started on atorvastatin 40 mg for hyperlipidemia. He remained stable during his hospital stay and was discharged home with an insulin regimen to follow up with Endocrinology. Allergies: Coded Allergies: NO KNOWN ALLERGIES (NO) (08/17/10) Pertinent Lab Results: 09/05/17-1401 EXAM TYPE: RAD - XRY-CHEST XRAY, TWO VIEWS FINDINGS: There is moderate elevation of left hemidiaphragm unchanged to 06/14/2011 exam. The heart size is enlarged with normal pulmonary vascularity. The lungs are well-expanded and clear. There is minimal bilateral apical scarring. No gross bony abnormality seen. IMPRESSION: No acute cardiopulmonary process. Moderate elevated left hemidiaphragm is stable compared to 06/14/2011. Disposition Summary Disposition Principal Diagnosis: New onset uncontrolled DM Odynophagia Generalized weakness YANG Thrombocytopenia Additional Diagnosis: as above Discharge Disposition: home or self care Discharge Instructions General Discharge Information Code Status: Full Code Patient's Diet: Diabetic Patient's Activity: Full Follow-Up Instructions/Appts: Follow up with the Endocriniologist-Dr. Rodriguez within 1 week of discharge Follow up with your PCP within 1-2 weeks of discharge Medications at Discharge Discharge Medications: Continue taking these medications: Levetiracetam (Keppra) 500 MG TABLET 500 Milligram ORAL DAILY Comments: Last Taken: 09/08/17 Time: 0800 Amlodipine Besylate (Amlodipine Besylate) 2.5 MG TABLET 2.5 Milligram ORAL DAILY Comments: Last Taken: 09/08/17 Time: 0800 Furosemide (Lasix) 40 MG TABLET 1 Tablet ORAL DAILY Comments: Last Taken: 09/08/17 Time: 0800 Folic Acid (Folic Acid) 1 MG TABLET 1 Milligram ORAL DAILY Comments: Last Taken: 09/08/17 Time: 0800 Ferrous Sulfate (Ferrous Sulfate) 325 MG (65 MG IRON) TABLET 1 Tablet ORAL DAILY Comments: Last Taken: 09/08/17 Time: 0800 Aspirin (Ecotrin*) 81 MG TABLET.DR 1 Tablet ORAL DAILY Comments: Last Taken: 09/08/17 Time: 0800 Lisinopril (Lisinopril) 10 MG TABLET 1 Tablet ORAL DAILY Comments: Last Taken: 09/08/17 Time: 0800 Calcitriol (Calcitriol) 0.25 MCG CAPSULE 1 Tablet ORAL See Instructions Comments: Last Taken: 09/08/17 Time: 0800 Start taking the following new medications: Nystatin (Nystatin) 100,000 UNIT/ML ORAL.SUSP 5 Milliliters ORAL 4 TIMES A DAY Qty = 1 No Refills Instructions: . Comments: Last Taken: 09/08/17 Time: 1230 Pen Needle, Diabetic (Bd Ultra-Fine Pen Needle) 31 GAUGE X 5/16" DIS.NEEDLE 1 Unit Inject into fatty tissue 5 TIMES CHASE Qty = 200 No Refills Comments: Last Taken: 09/08/17 Time: 1230 Atorvastatin Calcium (Atorvastatin Calcium) 40 MG TABLET 1 Tablet ORAL DAILY Qty = 30 No Refills Insulin Glargine,Hum.rec.anlog (Lantus Solostar) 100 UNIT/ML (3 ML) INSULN.PEN 10 Units Inject into fatty tissue TWICE DAILY Qty = 5 No Refills Insulin Lispro (Humalog) 100 UNIT/ML VIAL 0 Inject into fatty tissue 3 TIMES DAILY BEFORE MEALS Qty = 5 No Refills Comments: BLOOD SUGARS SS <80 NONE 80-150 5 151-200 7 201-250 9 251-300 10 301-350 11 351-400 12 >400 13 CALL YOUR DOCTOR Copies To: Jignesh WEAVER,Maximo Franks; Michael WEAVER,Benito Collado Attending MD Review Statement Other Findings: Discharging attending physician is Dr. Tova Yuen.
[2017-09-07 13:14] LABS: ABSOLUTE BASOPHIL COUNT 0 /CUMM (0.0-0.2); ABSOLUTE EOSINOPHIL COUNT 0.1 /CUMM (0.0-0.7); ABSOLUTE GRANULOCYTE CT 5.9 /CUMM (1.4-6.5); ABSOLUTE LYMPH COUNT 0.8 /CUMM (1.2-3.4); ABSOLUTE MONOCYTE COUNT 0.4 /CUMM (0.10-0.60); BASOPHIL % 0.2 % (0.0-2.0); EOSINOPHIL % 1.8 % (0-5); HEMATOCRIT 42.9 % (42-52); MEAN CORPUSCULAR HGB CONC 32.8 G/DL (33.0-37.0); MEAN CORPUSCULAR VOLUME 85.3 FL (80.0-94.0); MEAN PLATELET VOLUME 11.6 FL (7.4-10.4); RED BLOOD CELL CT 5.03 /CUMM (4.70-6.10); WHITE BLOOD CELL COUNT 7.2 /CUMM (4.8-10.8)
--- NOTE | 2017-09-07 13:41 | PN- Diabetes ---
Assessment/Plan Diabetes Assessment: The patient feels okay. He is presently on Levemir 8 units twice a day and NovoLog sliding scale. His sugars however have been running high. Plan: Suggest increase Levemir to 10 units twice a day. Change sliding scale NovoLog before meals to 80-150 give 5 units NovoLog, 151-200 give 7 units NovoLog, 201- 250 give 9 units NovoLog, 251-300 give 10 units NovoLog, 301-350 give 11 units NovoLog, 351-400 give 12 units NovoLog. Subjective Subjective: Feels okay Objective Last 24 Hrs of Vital Signs/I&O Vital Signs Date Time Temp Pulse Resp B/P B/P Pulse O2 O2 Flow FiO2 Mean Ox Delivery Rate 09/07 08 78 130/88 09/07 0840 78 130/88 09/07 0615 98.0 58 18 167/95 90 09/06 2223 98.5 81 20 118/78 94 Room Air 09/06 1402 97.8 70 20 134/77 94 Room Air Intake & Output 09/07 0000 Intake Total 120 Output Total 450 785 Balance -330 -785 Intake, Oral 120 Number 1 Bowel Movements Output, Urine 450 785 Vital Signs Date Time Temp Pulse Resp B/P B/P Pulse O2 O2 Flow FiO2 Mean Ox Delivery Rate 09/07 0840 78 130/88 09/07 0840 78 130/88 09/07 0615 98.0 58 18 167/95 90 09/06 2223 98.5 81 20 118/78 94 Room Air 09/06 1402 97.8 70 20 134/77 94 Room Air Intake & Output 09/07 0809/07 0000 Intake Total 120 Output Total 450 785 Balance -330 -785 Intake, Oral 120 Number 1 Bowel Movements Output, Urine 450 785 Physical Exam General Appearance: alert, awake, comfortable Neck: normal inspection Respiratory: normal breath sounds Cardiovascular: regular rate/rhythm, systolic murmur Abdomen: soft, non-tender Extremities: normal inspection Findings Pertinent Lab/Harrison Results: Laboratory Tests 09/07 09/07 09/07 09/07 1300 1130 0811 0600 Chemistry Sodium (137 - 145 mmol/L) 136 L Potassium (3.5 - 5.1 mmol/L) 3.7 Chloride (98 - 107 mmol/L) 102 Carbon Dioxide (22 - 30 mmol/L) 25 Anion Gap (5 - 16) 8 BUN (9 - 20 mg/dL) 13 Creatinine (0.7 - 1.2 mg/dL) 1.1 Estimated GFR (>60 ml/min) > 60 BUN/Creatinine Ratio (7 - 25 %) 11.8 Triglycerides (<150 mg/dL) 256 H Cholesterol (< 200 MG/DL) 222 H LDL Cholesterol, Calc (65 - 129 mg/dL) 139 H HDL Cholesterol (40 - 60 mg/dL) 32 L Cholesterol/HDL Ratio (0.00 - 4.88 %) 7 H TSH (0.270 - 4.200 uIU/mL) Pending Cancelled 1.760 Free T4 (0.78 - 2.44 ng/dL) Pending 1.06 Hematology CBC w Diff Pending WBC Pending RBC Pending Hgb Pending Hct Pending MCV Pending MCH Pending MCHC Pending RDW Pending Plt Count Pending MPV Pending Gran % Pending Lymphocytes % Pending Monocytes % Pending Eosinophils % Pending Basophils % Pending Absolute Granulocytes Pending Absolute Lymphocytes Pending Absolute Monocytes Pending Absolute Eosinophils Pending Absolute Basophils Pending Miscellaneous Ref Lab Test Result Pending Serology Babesia microti IgG Ab Pending Babesia microti IgM Ab Pending Babesia Interpretation Pending 09/06 09/06 09/06 0705 0600 0600 Chemistry Sodium (137 - 145 mmol/L) 138 Potassium (3.5 - 5.1 mmol/L) 3.4 L Chloride (98 - 107 mmol/L) 104 Carbon Dioxide (22 - 30 mmol/L) 23 Anion Gap (5 - 16) 12 BUN (9 - 20 mg/dL) 18 Creatinine (0.7 - 1.2 mg/dL) 1.1 Estimated GFR (>60 ml/min) > 60 BUN/Creatinine Ratio (7 - 25 %) 16.4 Hematology CBC w Diff NO MAN DIFF REQ WBC (4.8 - 10.8 /CUMM) 6.9 RBC (4.70 - 6.10 /CUMM) 4.68 L Hgb (14.0 - 18.0 G/DL) 12.8 L Hct (42 - 52 %) 40.0 L MCV (80.0 - 94.0 FL) 85.4 MCH (27.0 - 31.0 PG) 27.3 MCHC (33.0 - 37.0 G/DL) 32.0 L RDW (11.5 - 14.5 %) 15.5 H Plt Count (130 - 400 /CUMM) 63 L MPV (7.4 - 10.4 FL) 10.7 H Gran % (42.2 - 75.2 %) 76.1 H Lymphocytes % (20.5 - 51.1 %) 15.9 L Monocytes % (1.7 - 9.3 %) 5.5 Eosinophils % (0 - 5 %) 2.3 Basophils % (0.0 - 2.0 %) 0.2 Absolute Granulocytes (1.4 - 6.5 /CUMM) 5.2 Absolute Lymphocytes (1.2 - 3.4 /CUMM) 1.1 L Absolute Monocytes (0.10 - 0.60 /CUMM) 0.4 Absolute Eosinophils (0.0 - 0.7 /CUMM) 0.2 Absolute Basophils (0.0 - 0.2 /CUMM) 0 Serology Lyme Disease Antibody (RATIO) 0.12 Ehrlichia DNA (PCR) Pending HIV 1&2 Ab Western Blot (NONREACTIVE) NONREACTIVE
[2017-09-07 14:06] LABS: GRANULOCYTE % 81.6 % (42.2-75.2); PLATELET COUNT 76 /CUMM (130-400)
[2017-09-07 14:42] VITALS: BP 124/80
[2017-09-07 22:00] VITALS: BP 118/68
[2017-09-08 06:28] VITALS: BP 140/98
[2017-09-08 06:33] VITALS: BP 128/86
[2017-09-08 07:57] VITALS: BP 118/76
[2017-09-08 09:10] LABS: ABSOLUTE BASOPHIL COUNT 0 /CUMM (0.0-0.2); ABSOLUTE EOSINOPHIL COUNT 0.2 /CUMM (0.0-0.7); ABSOLUTE GRANULOCYTE CT 4.6 /CUMM (1.4-6.5); ABSOLUTE LYMPH COUNT 1.1 /CUMM (1.2-3.4); ABSOLUTE MONOCYTE COUNT 0.5 /CUMM (0.10-0.60); BASOPHIL % 0.4 % (0.0-2.0); EOSINOPHIL % 2.4 % (0-5); GRANULOCYTE % 72.6 % (42.2-75.2); HEMATOCRIT 41.8 % (42-52); MEAN CORPUSCULAR HGB 27.5 PG (27.0-31.0); MEAN CORPUSCULAR HGB CONC 32.7 G/DL (33.0-37.0); MEAN CORPUSCULAR VOLUME 84.2 FL (80.0-94.0); MEAN PLATELET VOLUME 11.5 FL (7.4-10.4); RBC DISTRIBUTION WIDTH 15.1 % (11.5-14.5); RED BLOOD CELL CT 4.97 /CUMM (4.70-6.10); WHITE BLOOD CELL COUNT 6.4 /CUMM (4.8-10.8)
--- NOTE | 2017-09-08 09:51 | PN- Diabetes ---
Assessment/Plan Diabetes Assessment: The patient states he feels better and better each day. He is presently on Levemir 10 units twice a day and sliding scale NovoLog starting with 5 units to 80-150. The patient blood sugars are still somewhat high. His fingerstick blood sugar before breakfast this morning is 284 but his insulin was increased late in the day yesterday. Plan: Suggest that if the patient goes home today he can be sent home on Levemir 10 units twice a day as well as sliding scale NovoLog before meals only using the present sliding scale. The bedtime sliding scale NovoLog can be discontinued. The patient should check his sugar 4 times a day. The patient needs to learn how to use the insulin pen and check his own sugars at home. The prescription for the insulin pen should be Levemir FlexPen dispense 5 pens with the with the directions to use 10 units twice a day. He should also be sent home on NovoLog Pen dispense 5 pens with the directions to take up to 35 units in divided doses before meals according to the sliding scale. The patient will also need a prescription for pen needles. This should be BD Demi pen needles #200 with the directions to use 5 daily. The patient can call the office if he is having trouble managing his blood sugars. He should also make an appointment for follow-up. Subjective Subjective: Feels better and better Review of Systems Constitutional: Denies: chills, fever. Cardiovascular: Denies: chest pain. Respiratory: Denies: cough, short of breath. Gastrointestinal: Denies: abdominal pain, nausea, vomiting. Skin: Reports: no symptoms. Objective Last 24 Hrs of Vital Signs/I&O Vital Signs Date Time Temp Pulse Resp B/P B/P Pulse O2 O2 Flow FiO2 Mean Ox Delivery Rate 09/08 0757 118/76 09/08 0757 118/76 09/08 0633 98.3 85 20 128/86 95 Room Air 09/08 0628 98.4 77 19 140/98 92 Nasal Cannula 09/07 2200 98.1 86 18 118/68 94 Room Air 09/07 1442 97.8 88 18 124/80 94 Room Air Intake & Output 09/08 1600 / 0800 06/ 0000 Intake Total 240 490 Output Total Balance 240 490 Intake, IV 0 10 Intake, Oral 240 480 Number 0 0 Bowel Movements Vital Signs Date Time Temp Pulse Resp B/P B/P Pulse O2 O2 Flow FiO2 Mean Ox Delivery Rate 09/08 0757 118/76 09/08 0757 118/76 09/08 0633 98.3 85 20 128/86 95 Room Air 09/08 0628 98.4 77 19 140/98 92 Nasal Cannula 09/07 2200 98.1 86 18 118/68 94 Room Air 09/07 1442 97.8 88 18 124/80 94 Room Air Intake & Output 09/08 1600 09/08 0800 09/08 0000 Intake Total 240 490 Output Total Balance 240 490 Intake, IV 0 10 Intake, Oral 240 480 Number 0 0 Bowel Movements Physical Exam General Appearance: alert, awake, comfortable Head: normal appearance Neck: normal inspection Respiratory: normal breath sounds Cardiovascular: regular rate/rhythm Abdomen: normal bowel sounds, soft Extremities: normal inspection Current Medications: Current Medications Sig/Nelson Start time Last Medication Dose Route Stop Time Status Admin Amlodipine Besylate 2.5 MG DAILY 09/06 899 AC 09/08 PO 0757 Aspirin Buffered 81 MG DAILY 09/06 899 AC 09/08 PO 0756 Atorvastatin Calcium 40 MG 1700 09/07 1700 CAN PO Atorvastatin Calcium 40 MG 1700 09/07 1700 AC 09/07 PO 1726 Calcitriol 0.25 MCG DAILY 09/06 899 AC 09/08 PO 0757 Ferrous Sulfate 325 MG DAILY 09/06 899 AC 09/08 PO 0757 Folic Acid 1 MG DAILY 09/06 09 AC 09/08 PO 0757 Furosemide 40 MG DAILY 09/07 0900 AC 09/08 PO 0757 Insulin Aspart 0 TIDAC 09/06 08 AC 09/08 CT 0756 Insulin Aspart 0 AT BEDTIME 09/05 2100 AC 09/07 CT 2214 Insulin Detemir 10 UNITS BID 09/07 2100 AC 09/08 SC 0755 Insulin Detemir 8 UNITS BID 09/06 09 DC 09/07 SC 0833 Insulin Human Regular 1 UNITS .STK-MED ONE 09/07 1714 DC IV 09/07 1715 Levetiracetam 500 MG DAILY 09/06 899 AC 09/08 PO 0757 Lisinopril 10 MG DAILY 09/07 09 AC 09/08 PO 0757 Nystatin 5 ML 4 TIMES/DAY 09/06 2115 AC 09/08 PO 0756 Patient Medication 1 ED ONE ONE 09/07 1545 DC 09/07 Teaching ED 09/07 9575 1726 Findings Pertinent Lab/Harrison Results: Laboratory Tests 09/08 09/07 09/07 0830 1300 1130 Chemistry Sodium (137 - 145 mmol/L) 137 Potassium (3.5 - 5.1 mmol/L) 4.0 Chloride (98 - 107 mmol/L) 101 Carbon Dioxide (22 - 30 mmol/L) 27 Anion Gap (5 - 16) 9 BUN (9 - 20 mg/dL) 16 Creatinine (0.7 - 1.2 mg/dL) 1.3 H Estimated GFR (>60 ml/min) 56 L BUN/Creatinine Ratio (7 - 25 %) 12.3 TSH (0.270 - 4.200 uIU/mL) 1.790 Cancelled Free T4 (0.78 - 2.44 ng/dL) 1.37 Hematology CBC w Diff Pending NO MAN DIFF REQ WBC (4.8 - 10.8 /CUMM) Pending 7.2 RBC (4.70 - 6.10 /CUMM) Pending 5.03 Hgb (14.0 - 18.0 G/DL) Pending 14.1 Hct (42 - 52 %) Pending 42.9 MCV (80.0 - 94.0 FL) Pending 85.3 MCH (27.0 - 31.0 PG) Pending 28.0 MCHC (33.0 - 37.0 G/DL) Pending 32.8 L RDW (11.5 - 14.5 %) Pending 15.0 H Plt Count (130 - 400 /CUMM) Pending 76 L MPV (7.4 - 10.4 FL) Pending 11.6 H Gran % (42.2 - 75.2 %) Pending 81.6 H Lymphocytes % (20.5 - 51.1 %) Pending 10.9 L Monocytes % (1.7 - 9.3 %) Pending 5.5 Eosinophils % (0 - 5 %) Pending 1.8 Basophils % (0.0 - 2.0 %) Pending 0.2 Absolute Granulocytes (1.4 - 6.5 /CUMM) Pending 5.9 Absolute Lymphocytes (1.2 - 3.4 /CUMM) Pending 0.8 L Absolute Monocytes (0.10 - 0.60 /CUMM) Pending 0.4 Absolute Eosinophils (0.0 - 0.7 /CUMM) Pending 0.1 Absolute Basophils (0.0 - 0.2 /CUMM) Pending 0 09/07 09/07 0811 0600 Chemistry Sodium (137 - 145 mmol/L) 136 L Potassium (3.5 - 5.1 mmol/L) 3.7 Chloride (98 - 107 mmol/L) 102 Carbon Dioxide (22 - 30 mmol/L) 25 Anion Gap (5 - 16) 8 BUN (9 - 20 mg/dL) 13 Creatinine (0.7 - 1.2 mg/dL) 1.1 Estimated GFR (>60 ml/min) > 60 BUN/Creatinine Ratio (7 - 25 %) 11.8 Triglycerides (<150 mg/dL) 256 H Cholesterol (< 200 MG/DL) 222 H LDL Cholesterol, Calc (65 - 129 mg/dL) 139 H HDL Cholesterol (40 - 60 mg/dL) 32 L Cholesterol/HDL Ratio (0.00 - 4.88 %) 7 H TSH (0.270 - 4.200 uIU/mL) 1.760 Free T4 (0.78 - 2.44 ng/dL) 1.06 Miscellaneous Ref Lab Test Result Pending Serology Babesia microti IgG Ab Pending Babesia microti IgM Ab Pending Babesia Interpretation Pending
[2017-09-08 10:21] LABS: PLATELET COUNT 84 /CUMM (130-400)
[2017-09-08] MEDS ORDERED: NOVOLOG FL100 UNIT/1 SC (12:12)
[2017-09-08] MEDS ORDERED: BD ULTRA-FINE1 EAC1 SC (12:12)
[2017-09-08] MEDS ORDERED: LEVEMIR FL100 UNIT/1 SC (12:12)
[2017-09-08] MEDS ORDERED: NYSTATIN100000 UNI PO (12:13)
[2017-09-08] MEDS ORDERED: ATORVASTATIN CA40 M1 PO (12:46)
[2017-09-08] MEDS ORDERED: HUMALOG100 UNIT/2 SC (13:55)
[2017-09-08] MEDS ORDERED: LANTUS SOL100 UNIT/1 SC (13:55)
--- NOTE | 2017-09-08 16:09 | PN- Att Addend ---
Attending Addendum Attending Brief Note Laboratory Tests 09/08/17 0830: Anion Gap 9, Estimated GFR 56 L, BUN/Creatinine Ratio 12.3, CBC w Diff NO MAN DIFF REQ, RBC 4.97, MCV 84.2, MCH 27.5, MCHC 32.7 L, RDW 15.1 H, MPV 11.5 H, Gran % 72.6, Lymphocytes % 16.9 L, Monocytes % 7.7, Eosinophils % 2.4, Basophils % 0.4, Absolute Granulocytes 4.6, Absolute Lymphocytes 1.1 L, Absolute Monocytes 0.5, Absolute Eosinophils 0.2, Absolute Basophils 0 Vital Signs Date Time Temp Pulse Resp B/P B/P Pulse O2 O2 Flow FiO2 Mean Ox Delivery Rate 09/08 0757 118/76 09/08 0757 118/76 09/08 0633 98.3 85 20 128/86 95 Room Air 09/08 0628 98.4 77 19 140/98 92 Nasal Cannula 09/07 2200 98.1 86 18 118/68 94 Room Air Pt with newly diagnosed DM with AIC of 19. Pt is being dced home in stable condition and was insturcted to f/u on DM Diet and will be sent home on levemir 10 U bid and SSI coverage with meals . Pt was given the Sliding scale instructions. d/ wpt and pts family at bedside the care plan. See dc summary for more details .
[2017-09-10 20:10] LABS: BABESIA MICROTI IGG <1:64 (<1:64); BABESIA MICROTI IGM <1:20 (<1:20)
== END 2017-09-08 13:25 | disposition home health service (06) | DRG 638 ==
LOC: ERH 11:05 → ERHI 17:13 → 2NB 17:13 → ENRESERV 21:49 → 2NB 23:13 → ENPENDDIS 09-08 13:32
PROVIDERS: Emergency Medicine; Internal Medicine Adolescent Medicine; Student in an Organized Health Care Education/Training Program
DX: E11.65 Type 2 diabetes mellitus with hyperglycemia (principal); N17.9 Acute kidney failure, unspecified; B37.0 Candidal stomatitis; N18.9 Chronic kidney disease, unspecified; Z95.3 Presence of xenogenic heart valve; I73.9 Peripheral vascular disease, unspecified; N40.0 Benign prostatic hyperplasia without lower urinary tract symptoms; G40.909 Epilepsy, unspecified, not intractable, without status epilepticus; D69.6 Thrombocytopenia, unspecified; E66.9 Obesity, unspecified; Z68.32 Body mass index [BMI] 32.0-32.9, adult; I12.9 Hypertensive chronic kidney disease with stage 1 through stage 4 chronic kidney disease, or unspecified chronic kidney disease; E11.22 Type 2 diabetes mellitus with diabetic chronic kidney disease; R13.10 Dysphagia, unspecified; Z86.73 Personal history of transient ischemic attack (TIA), and cerebral infarction without residual deficits; E78.5 Hyperlipidemia, unspecified
CPT/HCPCS: 2NBSP; 86618; 36415; 36592; 71046; 82436; 86753; 87389; 87798; 93005; 93010; 96374; J1815; J3490